=== PATIENT | male | born 1985 | race Caucasian/White ===

== ENCOUNTER 2019-06-12 02:54 | Emergency (ER) | payer SELFPAY ==
[~2019-06-12] VITALS: Ht 175.3 cm; Wt 88.6 kg
[2019-06-12 03:52] LABS: AMPHETAMINES LEVEL URINE POSITIVE (NEGATIVE); BARBITURATES URINE NEGATIVE (NEGATIVE); BENZODIAZEPINES URINE NEGATIVE (NEGATIVE); CANNABINOIDS URINE NEGATIVE (NEGATIVE); COCAINE METABOLITE URINE POSITIVE (NEGATIVE); METHADONE URINE NEGATIVE (NEGATIVE); OPIATES URINE POSITIVE (NEGATIVE); PHENCYCLIDINE URINE NEGATIVE (NEGATIVE)
[2019-06-12 05:24] VITALS: BP 111/81
== END 2019-06-12 05:51 | disposition home or self-care (01) ==
LOC: M ED 02:54
DX: F11.10 Opioid abuse, uncomplicated (principal); F14.10 Cocaine abuse, uncomplicated; F15.10 Other stimulant abuse, uncomplicated

== ENCOUNTER 2019-08-24 09:53 | Emergency (ER) | payer SELFPAY ==
[~2019-08-24] VITALS: Ht 177.8 cm; Wt 76.5 kg
[2019-08-24] MEDS ORDERED: NS 1,000 ML IV ONE ×2 (10:15→12:15)
--- NOTE | 2019-08-24 10:32 | REP ---
Clinical: Rule out foreign body. Technique: AP, lateral, oblique views of the left foot. Findings: Area of laceration overlying the base of the first metatarsal bone is identified. No obvious foreign body. No acute fracture or dislocation. Impression: Laceration. No obvious foreign body. Electronically Signed by Randy Payton MD 08/24/2019 10:24 A
[2019-08-24 10:34] LABS: BASO % 0.5 % (0.0-1.0); EOS # 0.1 10^3/uL (0.0-0.5); EOS % 1.5 % (0.0-3.0); HEMOGLOBIN 12.7 g/dl (13.5-17.5); LYMPH # 2.7 10^3/uL (1.5-5.0); MEAN CORPUSCULAR HEMOGLOBIN 29.3 pg (27.0-33.0); MEAN CORPUSCULAR HGB CONC 32.6 g/dl (32.0-36.5); MEAN CORPUSCULAR VOLUME 89.9 fl (80.0-96.0); MONO # 0.7 10^3/uL (0.0-0.8); MONO % 8.3 % (0.0-5.0); NEUTROPHILS # 4.3 10^3/uL (1.5-8.5); NEUTROPHILS % 54.3 % (36.0-66.0); PLATELET COUNT, AUTOMATED 272 10^3/uL (150-450); RED BLOOD COUNT 4.34 10^6/uL (4.30-6.10); WHITE BLOOD COUNT 7.8 10^3/uL (4.0-10.0)
[2019-08-24] MEDS ORDERED: LIDOCAINE 2% MDV 20 ML VIAL As Ordered ONE (10:57)
[2019-08-24] MEDS ORDERED: LIDOCAINE 2% MDV 20 ML VIAL SC ONE (11:00)
[2019-08-24 11:06] LABS: ACETAMINOPHEN LEVEL < 2.0 UG/ML (10.0-30.0); ALBUMIN 3.5 GM/DL (3.2-5.2); ALT/SGPT 52 U/L (12-78); BILIRUBIN,DIRECT 0.1 MG/DL (0.0-0.2); BILIRUBIN,TOTAL 0.3 MG/DL (0.2-1.0); BLOOD UREA NITROGEN 16 MG/DL (7-18); CALCIUM LEVEL 8.7 MG/DL (8.5-10.1); CARBON DIOXIDE LEVEL 28 MEQ/L (21-32); CHLORIDE LEVEL 109 MEQ/L (98-107); CPK CREATINE PHOSPHOKINASE 411 U/L (39-308); CREATININE FOR GFR 1.38 MG/DL (0.70-1.30); ETHYL ALCOHOL (ETHANOL) < 0.003 % (0.000-0.010); GLOMERULAR FILTRATION RATE > 60.0 (>60); GLUCOSE, FASTING 125 MG/DL (70-100); POTASSIUM SERUM 3.8 MEQ/L (3.5-5.1); SALICYLATE LEVEL < 1.7 MG/DL (5.0-30.0); SODIUM LEVEL 144 MEQ/L (136-145); TOTAL PROTEIN 7.1 GM/DL (6.4-8.2)
--- NOTE | 2019-08-24 12:04 | REP ---
Clinical: Altered mental status . Comparison: None . Findings: The ventricles, sulci, and cisterns are normal in position and appearance. Millan-white differentiation is maintained. No acute intracranial hemorrhage, mass/mass effect, pathology or trauma/injury. No evidence for acute infarction. No extra-axial fluid collection. Calvarium is intact. Paranasal sinuses and mastoid air cells are clear. Impression: Normal noncontrast head CT. No evidence for acute intracranial pathology or trauma/injury. Electronically Signed by Randy Payton MD 08/24/2019 11:56 A
[2019-08-24] MEDS ORDERED: ceFAZolin SOD 1 GM in D5W MINI-BAG PLUS 50 ML IV ONE (12:30)
[2019-08-24] MEDS ORDERED: IBUPROFEN 600 MG TAB PO ONE (12:45)
[2019-08-24 14:28] LABS: AMPHETAMINES LEVEL URINE POSITIVE (NEGATIVE); BARBITURATES URINE NEGATIVE (NEGATIVE); BENZODIAZEPINES URINE NEGATIVE (NEGATIVE); CANNABINOIDS URINE NEGATIVE (NEGATIVE); COCAINE METABOLITE URINE NEGATIVE (NEGATIVE); METHADONE URINE NEGATIVE (NEGATIVE); OPIATES URINE POSITIVE (NEGATIVE); PHENCYCLIDINE URINE NEGATIVE (NEGATIVE)
[2019-08-24] MEDS ORDERED: KEFL500C17 PO (14:40)
[2019-08-24 14:45] VITALS: BP 121/59
--- NOTE | 2019-08-24 19:13 | ECGEPIP ---
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
== END 2019-08-24 15:02 | disposition home or self-care (01) ==
LOC: EDBD 09:53 → M ED 09:53 → EDSEX 09:53 → M ED 15:02
DX: F19.10 Other psychoactive substance abuse, uncomplicated (principal); S91.311A Laceration without foreign body, right foot, initial encounter; W22.8XXA Striking against or struck by other objects, initial encounter; Y92.9 Unspecified place or not applicable; Y93.9 Activity, unspecified; Y99.9 Unspecified external cause status; F17.200 Nicotine dependence, unspecified, uncomplicated
CPT/HCPCS: 12002; 70450; 73630; 80048; 80076; 80307; 82550; 84443; 85025; 93005; 93041; 94760; 96360; 96361; 96365; 99285; G0480; J0690

== ENCOUNTER 2020-07-27 00:43 | Emergency (ER) | payer MEDICAID, SELFPAY ==
[~2020-07-27] VITALS: Ht 177.8 cm; Wt 72.7 kg
[~2020-07-27 00:43] MED LIST: KEFL500C17 PO
--- OUTSIDE RECORDS SUMMARY | 2020-07-27 00:49 | CCD ---
Author Author [facility] Organization [facility] Address Unknown Phone Unavailable Support Name Relationship Address Phone [facility] [place] [phone] UE Next Of Kin Unknown Unavailable DANIELLE SHEIKH DIMITRIS Next Of Kin [address] [place], [place] [id number] Re-disclosure Warning The records that you are about to access may contain information from federally-assisted alcohol or drug abuse programs. If such information is present, then the following federally mandated warning applies: This information has been disclosed to you from records protected by federal confidentiality rules (42 CFR part 2). The federal rules prohibit you from making any further disclosure of this information unless further disclosure is expressly permitted by the written consent of the person to whom it pertains or as otherwise permitted by 42 CFR part 2. A general authorization for the release of medical or other information is NOT sufficient for this purpose. The Federal rules restrict any use of the information to criminally investigate or prosecute any alcohol or drug abuse patient.The records that you are about to access may contain highly sensitive health information, the redisclosure of which is protected by Article 27-F of the [facility] Public Health law. If you continue you may have access to information: Regarding HIV / AIDS; Provided by facilities licensed or operated by the [facility] Office of Mental Health; or Provided by the [facility] Office for People With Developmental Disabilities. If such information is present, then the following [facility] mandated warning applies: This information has been disclosed to you from confidential records which are protected by state law. State law prohibits you from making any further disclosure of this information without the specific written consent of the person to whom it pertains, or as otherwise permitted by law. Any unauthorized further disclosure in violation of state law may result in a fine or nursing home sentence or both. A general authorization for the release of medical or other information is NOT sufficient authorization for further disc losure. Encounters Encounter Providers Location Date Indications Data Source(s ) Outpatient 09/02/2019 01:47:00 PM EST [facility] Medications Medication Brand Name Start Date Product Form Dose Route Admi nistrative Instructions Pharmacy Instructions Status Indications Reaction Description Data Source(s) Ibuprofen 200 MG Oral Capsule Ibuprofen 06/18/2020 12:00:00 AM EST active [facility] Insurance Providers Payer name Policy type / Coverage type Policy ID Covered democrat ID Covered democrat's relationship to lewis Policy Lewis Plan Information SELF PAY ONLY [id number] O UNAVAILABLE UNAVAILA BLE EXCELLUS [facility] FEDERAL [id number] FA2 [id number] Vital Signs ID Date Data Source UNK Name Value Range Interpretation Code Description Data Source(s) Body weight 168.00 [lb_av] 168.00 [lb_av] [facility] T ([facility]) Body temperature 97.8 [degF] 97.8 [degF] [facility] Respiratory rate 18 /min 18 /min [facility] ( [facility]) Heart rate 91 /min 91 /min [facility] ([facility]) Diastolic blood pressure 84 mm[Hg] 84 mm[Hg] [facility]) Systolic blood pressure 133 mm[Hg] 133 mm[Hg] [facility] ([facility])
--- OUTSIDE RECORDS SUMMARY | 2020-07-27 00:49 | CCD | Continuity of Care Document ---
Author Author Hernandez NAVARRO M.D. Organization Unknown Address [address] [place] [address] Phone [phone] Problems Description No Information Available Social History Type Date Description Comments Sex Unknown Allergies, Adverse Reactions, Alerts Description No Known Drug Allergies Medications Active Medications SIG Qnty Indications Ordering Provide r Date Ibuprofen 200mg Capsules 2 tabs twice a day x 7 30caps Patel Navarro M.D. 06/18/2020 Immunizations Description No Information Available Vital Signs Date Vital Result Comment 06/18/2020 8:42am BP Systolic 133 mmHg BP Diastolic 84 mmHg Heart Rate 91 /min Respiratory Rate 18 /min Body Temperature 97.8 F Weight 168.00 lb 08/08/2018 8:45am BP Systolic 127 mmHg BP Diastolic 85 mmHg Heart Rate 102 /min Respiratory Rate 18 /min Body Temperature 98.2 F Weight 181.00 lb Results Description No Information Available Procedures Description No Information Available Medical Devices Description No Information Available Encounters Description No Information Available Assessments Description No Information Available Plan of Treatment No Information Available Functional Status Description No Information Available Mental Status Description No Information Available Referrals Description No Information Available
--- OUTSIDE RECORDS SUMMARY | 2020-07-27 00:49 | CCD | Continuity of Care Document ---
Author Author Hernandez BARRIGA M.D. Organization Unknown Address [address] [place] [address] Phone [phone] Problems Description No Information Available Social History Type Date Description Comments Sex Unknown Allergies, Adverse Reactions, Alerts Description No Known Drug Allergies Medications Description No Active Medications Immunizations Description No Information Available Vital Signs Date Vital Result Comment 08/08/2018 8:45am BP Systolic 127 mmHg BP Diastolic 85 mmHg Heart Rate 102 /min Respiratory Rate 18 /min Body Temperature 98.2 F Weight 181.00 lb 12/17/2017 12:32pm Weight 205.00 lb Results Description No Information Available Procedures Description No Information Available Medical Devices Description No Information Available Encounters Description No Information Available Assessments Description No Information Available Plan of Treatment No Information Available Functional Status Description No Information Available Mental Status Description No Information Available Referrals Description No Information Available
[2020-07-27] MEDS ORDERED: MORPHINE 4 MG/ML 1ML VIAL/SYRINGE (J2270) IV ONE (01:15)
[2020-07-27 01:23] LABS: BASO # 0.1 10^3/uL (0.0-0.2); BASO % 0.6 % (0.0-1.0); EOS # 0.1 10^3/uL (0.0-0.5); EOS % 0.8 % (0.0-3.0); HEMATOCRIT 40.3 % (42.0-52.0); HEMOGLOBIN 13.1 g/dl (13.5-17.5); LYMPH # 3.6 10^3/uL (1.5-5.0); LYMPH % 33.8 % (24.0-44.0); MEAN CORPUSCULAR HEMOGLOBIN 28.7 pg (27.0-33.0); MEAN CORPUSCULAR HGB CONC 32.5 g/dl (32.0-36.5); MEAN CORPUSCULAR VOLUME 88.2 fl (80.0-96.0); NEUTROPHILS # 5.9 10^3/uL (1.5-8.5); NEUTROPHILS % 55.6 % (36.0-66.0); PLATELET COUNT, AUTOMATED 342 10^3/uL (150-450); RED BLOOD COUNT 4.57 10^6/uL (4.30-6.10); WHITE BLOOD COUNT 10.7 10^3/uL (4.0-10.0)
[2020-07-27] MEDS ORDERED: NS 1,000 ML IV SCH (01:40)
[2020-07-27] MEDS ORDERED: FLUORESCEIN OPHTH 1 MG STRIP OS ONE (01:45)
[2020-07-27] MEDS ORDERED: fentaNYL 100 MCG/2 ML INJECTION (J3010) IV ONE (01:45)
[2020-07-27] MEDS ORDERED: TETRACAINE 0.5% OPHTH SOLN 4ML OS ONE (01:45)
--- NOTE | 2020-07-27 02:02 | REPVR ---
PROCEDURE INFORMATION: Exam: CT Maxillofacial Without Contrast Exam date and time: 07/27/2020 1:13 AM Age: 35 years old Clinical indication: Injury or trauma; Fall; Puncture; Ocular (eye or eyeball); Left; Not specified; Additional info: Trauma L eye proptosis TECHNIQUE: Imaging protocol: Computed tomography images of the face without contrast. Radiation optimization: All CT scans at this facility use at least one of these dose optimization techniques: automated exposure control; mA and/or kV adjustment per patient size (includes targeted exams where dose is matched to clinical indication); or iterative reconstruction. COMPARISON: No relevant prior studies available. FINDINGS: Orbital cavity: There is an acute traumatic rupture of the left globe, with a deformity of the left globe and acute hemorrhage in the left vitreous body. The depth of the anterior chamber of the left eye is preserved. There is a small amount of acute hemorrhage posterior to the superior temporal portion of the left orbit and left proptosis. The orbital hendricks are intact. The right globe is intact. Bones/joints: There is no fracture or dislocation of the facial bones. The temporomandibular joints are unremarkable. Paranasal sinuses: There is moderate mucosal thickening in the right frontal sinus, both ethmoid sinuses, and the left maxillary sinus. There is mild mucosal thickening in the right maxillary sinus and both sphenoid sinuses. No air-fluid levels are noted in the sinuses. Mastoid air cells: Normal as visualized. No mastoid effusion. Auditory system: The middle ear spaces are clear. Soft tissues: There is left periorbital soft tissue swelling and fluid. Nasal cavity: Unremarkable. Dental: There are dental caries and a periapical abscess involving the right upper 2nd molar, dental caries involving the right upper 2nd premolar, dental caries and a periapical abscess involving the right upper 1st molar, dental caries and a periapical abscess involving the right upper canine, dental caries involving the right upper lateral incisor, dental caries involving both upper central incisors, dental caries and a periapical abscess involving the left upper lateral incisor, dental caries involving the left upper canine, dental caries and a periapical abscess involving the left upper 1st premolar, dental caries involving the left upper 2nd premolar, dental caries involving the left upper 1st molar, and dental caries and a periapical abscess involving the left upper 2nd molar. The lower teeth were not fully imaged. Nasopharynx: Unremarkable. Oropharynx: Unremarkable. No significant tonsillar hypertrophy. No tonsillar or peritonsillar abscess. IMPRESSION: Acute traumatic rupture of the left globe, with acute hemorrhage in the left vitreous body, a small amount of acute hemorrhage posterior to the left globe, and left proptosis. Electronically signed by: Cameron Matias On 07/27/2020 02:03:25 AM
--- NOTE | 2020-07-27 02:02 | REPVR ---
PROCEDURE INFORMATION: Exam: CT Head Without Contrast Exam date and time: 07/27/2020 1:13 AM Age: 35 years old Clinical indication: Injury or trauma; Fall; Blunt trauma (contusions or hematomas); Additional info: Trauma L eye proptosis TECHNIQUE: Imaging protocol: Computed tomography of the head without contrast. Radiation optimization: All CT scans at this facility use at least one of these dose optimization techniques: automated exposure control; mA and/or kV adjustment per patient size (includes targeted exams where dose is matched to clinical indication); or iterative reconstruction. COMPARISON: CT Head without contrast 08/24/2019 11:47 AM FINDINGS: Brain: There is no CT evidence for an acute large vessel territorial infarct. No acute epidural or subdural hemorrhage or intraparenchymal hemorrhage is seen. No mass, mass effect, midline shift, or herniation is noted. The cortical gyration pattern, basal ganglia, thalami, brainstem, and cerebellum are normal in appearance. Cerebral ventricles: Normal. No hydrocephalus. Bones/joints: The skull is intact. No suspicious osteolytic or osteoblastic lesion. Paranasal sinuses: There is moderate mucosal thickening in the right frontal sinus, both ethmoid sinuses, and the left maxillary sinus. There is mild mucosal thickening in the right maxillary sinus and both sphenoid sinuses. No air-fluid levels are noted in the sinuses. Mastoid air cells: Clear. Orbital cavity: There is an acute traumatic rupture of the left globe, with a deformity of the left globe and acute hemorrhage in the left vitreous body. The depth of the anterior chamber of the left eye is preserved. There is a small amount of acute hemorrhage posterior to the superior temporal portion of the left orbit and left proptosis. Soft tissues: There is left periorbital soft tissue swelling and fluid. IMPRESSION: 1. Acute traumatic rupture of the left globe, with acute hemorrhage in the left vitreous body, a small amount of acute hemorrhage posterior to the left globe, and left proptosis. 2. Intact skull. No epidural or subdural or intraparenchymal hemorrhage. Electronically signed by: Cameron Matias On 07/27/2020 02:03:06 AM
[2020-07-27 02:13] LABS: BLOOD UREA NITROGEN 17 MG/DL (7-18); CALCIUM LEVEL 9.1 MG/DL (8.5-10.1); CARBON DIOXIDE LEVEL 27 MEQ/L (21-32); CHLORIDE LEVEL 106 MEQ/L (98-107); CREATININE FOR GFR 1.22 MG/DL (0.70-1.30); GLOMERULAR FILTRATION RATE > 60.0 (>60); GLUCOSE, FASTING 159 MG/DL (70-100); POTASSIUM SERUM 4.4 MEQ/L (3.5-5.1); SODIUM LEVEL 138 MEQ/L (136-145)
--- OUTSIDE RECORDS SUMMARY | 2020-07-27 02:18 | CCD ---
Author Author [facility] Organization [facility] Address Unknown Phone Unavailable Support Name Relationship Address Phone [facility] [place] [phone] UE Next Of Kin Unknown Unavailable DANIELLE SHEIKH DIMITRIS Next Of Kin [address] [place], [place] [phone] Re-disclosure Warning The records that you are [...] is protected by Article 27-F of the [facility] Public Health law. If you continue you may have access to information: Regarding HIV / AIDS; Provided by facilities licensed or operated by the [facility] Office of Mental Health; or Provided by the [facility] Office for People With Developmental Disabilities. If such information is present, then the following [facility] mandated warning applies: This information has been [...] law may result in a fine or custodial sentence or both. A general authorization for [...] Ibuprofen 06/18/2020 12:00:00 AM EST active [facility] ([facility]) Insurance Providers Payer name Policy type / Coverage type Policy ID Covered green party ID Covered green party's relationship to lewis Policy Lewis Plan Information SELF PAY ONLY [id number] O UNAVAILABLE UNAVAILA BLE EXCELLUS [facility] FEDERAL [id number] FA2 [id number] Vital Signs ID Date Data Source UNK Name Value Range Interpretation Code Description Data Source(s) Body weight 168.00 [lb_av] 168.00 [lb_av] [facility] T ([facility]) Body temperature 97.8 [degF] 97.8 [degF] [facility] Respiratory rate 18 /min 18 /min [facility] ( [facility] Heart rate 91 /min 91 /min [facility] ([facility]) Diastolic blood pressure 84 mm[Hg] 84 mm[Hg] [facility] Systolic blood pressure 133 mm[Hg] 133 mm[Hg] [facility] ([facility])
[2020-07-27 03:00] VITALS: BP 130/62
== END 2020-07-27 03:08 | disposition short-term general hospital (02) ==
LOC: M ED 00:43
DX: S05.8X2A Other injuries of left eye and orbit, initial encounter (principal); H05.232 Hemorrhage of left orbit; K04.7 Periapical abscess without sinus; K02.9 Dental caries, unspecified; W01.10XA Fall on same level from slipping, tripping and stumbling with subsequent striking against unspecified object, initial encounter; Y92.094 Garage of other non-institutional residence as the place of occurrence of the external cause; Y93.9 Activity, unspecified; Y99.9 Unspecified external cause status; F19.10 Other psychoactive substance abuse, uncomplicated; F17.200 Nicotine dependence, unspecified, uncomplicated
CPT/HCPCS: 70450; 70486; 80048; 85025; 96361; 96374; 96375; 99284; J2270; J3010

== ENCOUNTER 2022-03-11 20:55 | Emergency (ER) | payer MEDICAID, OTHER ==
[2022-03-11 21:06] VITALS: BP 173/97
== END 2022-03-11 21:40 | disposition home or self-care (01) ==
LOC: M ED 20:55
DX: F19.129 Other psychoactive substance abuse with intoxication, unspecified (principal); F17.200 Nicotine dependence, unspecified, uncomplicated; F10.10 Alcohol abuse, uncomplicated